=== PATIENT | male | born 1945 | race Caucasian/White ===

== ENCOUNTER 2019-10-19 10:08 | Inpatient (IN) | payer MEDICARE ==
[2020-01-14] MEDS ORDERED: Thrombin 5000 UNITS/5 ML VIAL ONE (06:11)
[2020-01-14] MEDS ORDERED: EPINEPHrine 1 MG/ML AMP ONE (06:11)
[2020-01-14] MEDS ORDERED: Bupivacaine PF 0.5% 30 ML VIAL ONE (06:11)
[2020-01-14] MEDS ORDERED: Fentanyl 100 MCG/2 ML VIAL ONE ×3 (06:52→16:39)
[2020-01-14] MEDS ORDERED: Phenylephrine 10 MG/ML VIAL ONE (06:52)
[2020-01-14] MEDS ORDERED: Rocuronium Bromide 50 MG/5 ML VIAL ONE (10:57)
[2020-01-14] MEDS ORDERED: Albumin 5% 500 ML ONE (12:04)
[2020-01-14] MEDS ORDERED: HYDROmorphone 2 MG/ML VIAL ONE (13:20)
[2020-01-14] MEDS ORDERED: Scopolamine 1.5 mg/72 hour Patch TD PRN (13:56)
[2020-01-14] MEDS ORDERED: Zolpidem Tartrate 5 MG TAB PO PRN (13:56)
[2020-01-14] MEDS ORDERED: Milk Of Magnesia 30 ML UDCUP PO PRN (13:56)
[2020-01-14] MEDS ORDERED: Ondansetron PF 4 MG/2 ML Vial IVP PRN (13:56)
[2020-01-14] MEDS ORDERED: Acetaminophen 325 MG TAB PO PRN (13:56)
[2020-01-14] MEDS ORDERED: Promethazine 25 MG TAB PO PRN (13:56)
[2020-01-14] MEDS ORDERED: tiZANidine HCl 4 MG TAB PO PRN (13:56)
[2020-01-14] MEDS ORDERED: diphenhydrAMINE 25 MG CAP PO PRN (13:56)
[2020-01-14] MEDS ORDERED: Dexamethasone 20 MG/5 ML VIAL ONE (13:59)
[2020-01-14] MEDS ORDERED: Glycopyrrolate 0.2 MG/ML 5 ML SYRINGE ONE (13:59)
[2020-01-14] MEDS ORDERED: Rocuronium Bromide 10 MG/ML (10ML VIAL) ONE (13:59)
[2020-01-14] MEDS ORDERED: PHENYLEPHRINE-NS 100 MCG/ML 10 ML SYRINGE ONE (13:59)
[2020-01-14] MEDS ORDERED: EPHEDRINE 25 MG/5 ML SYRINGE ONE (13:59)
[2020-01-14] MEDS ORDERED: Ondansetron PF 4 MG/2 ML Vial ONE (13:59)
[2020-01-14] MEDS ORDERED: PROPOFOL 200 MG/20 ML VIAL ONE (13:59)
[2020-01-14] MEDS ORDERED: Lidocaine 1% PF 5 ML VIAL ONE (13:59)
[2020-01-14] MEDS ORDERED: CEFAZOLIN 2 GM in Premix Bag 1 BAG IVPB SCH (14:00)
[2020-01-14] MEDS ORDERED: PACU-Morphine 4MG/ML VIAL SLOW IVP PRN (14:09)
[2020-01-14] MEDS ORDERED: Promethazine HCl 25 MG/ML VIAL IM PRN (14:09)
[2020-01-14] MEDS ORDERED: Promethazine HCl 25 MG/ML VIAL SLOW IVP PRN (14:09)
[2020-01-14] MEDS ORDERED: HYDROmorphone 2 MG/ML VIAL SLOW IVP PRN (14:09)
[2020-01-14] MEDS ORDERED: Ondansetron HCl/PF 4 MG/2 ML Vial IVP PRN (14:09)
[2020-01-14] MEDS ORDERED: Fentanyl 100 MCG/2 ML VIAL SLOW IVP PRN (14:13)
[2020-01-14] MEDS ORDERED: Calcium Chloride 1 GM/10 ML Abboject SYRINGE ONE (14:58)
--- NOTE | 2020-01-14 15:26 | OP ---
DATE OF PROCEDURE: 01/14/2020 CASHIER MANAGER: Miguel Carvajal PA-C PREOPERATIVE INDICATION: Treat pain, prevent neurological deterioration. PREOPERATIVE DIAGNOSES: Adjacent segment disease, prior lumbar fusion, lumbar stenosis, neurogenic claudication, lumbar radiculopathy, and advanced degenerative lumbar disk disease with foraminal stenosis at L4-5 and lateral recess stenosis at L3-4. POSTOPERATIVE DIAGNOSES: Adjacent segment disease, prior lumbar fusion, lumbar stenosis, neurogenic claudication, lumbar radiculopathy, and advanced degenerative lumbar disk disease with foraminal stenosis at L4-5 and lateral recess stenosis at L3-4. PROCEDURES PERFORMED: Reopening of lumbar incision, removal of posterior instrumentation at L5-S1, inspection of fusion, decompressive laminectomy with medial facetectomy and foraminotomy at L3-L4 and L4-5, transforaminal lumbar interbody arthrodesis at L4-5, posterior lateral arthrodesis at L4-5 and L5-S1, instrumentation from L4 through S1, local morselized autograft, morselized allograft. PREOPERATIVE MEDICATIONS: Ancef 2 g IV. DRAIN NUMBER: One. DRAIN TYPE: 10-[place] At. DESCRIPTION OF PROCEDURE: The patient was brought to the operating room. General endotracheal anesthesia was induced. The patient was positioned on the Albert frame with appropriate padding for the chest and hips. A lateral fluoro radiograph confirmed that his previous incision could give us access from L3 to the sacrum. The lumbar skin was sterilely prepped and draped. We opened with a 10 blade knife and controlled bleeding with bipolar and monopolar cautery. We used monopolar cautery to dissect through subcutaneous tissues to separate dorsal fascia. We incised the fascia in the midline. We peeled the paraspinal muscles off the remnant of the L4 spinous process and the superior portion of the sacrum. We dissected the scar tissue between these 2 landmarks and reflected the scar tissue laterally over the facet joints. We identified the L4-5 and L5-S1 facet joints. Pedicle screw and ko instrumentation at L5 and S1 was identified. We dissected around that. We dissected the paraspinal muscles off the spinous process and lamina of L3 as well. Self-retaining retractors were placed. A lateral fluoro radiograph confirmed our levels. We then brought the expansion of the field and removed the caps from the previous posterior instrumentation. We removed the crossbar as well and removed the rods from the L5 and S1 pedicle screws. We then used an Adson rongeur to remove the spinous process of L4 and L3 within the lamina with bone rongeurs and then using the Kerrison rongeur, we fashioned a laminectomy down the midline. We widened our laminectomy defect lateral to the thecal sac. There was overgrown facet joint material at L3-4 and L4-5. There was synovial cyst on the right at L3-4 and all this had to be removed to decompress the L4 nerve roots and the L5 nerve roots. Once our decompression of the canal was secured, we turned our attention to the right L4 nerve root, which was severely compressed in the foramen. Here complete facetectomy needed to be done to decompress the nerve. Once the nerve was well decompressed, we turned our attention to arthrodesis. We accessed the intervertebral space through the wide foraminotomy that we had created. We removed disk contents using curettes and rongeurs. We measured the height of the interspace to 10 mm with a rectangular bone rasp. We prepared the endplates for grafting. We irrigated with bacitracin irrigation. A 10 mm PEEK graft was brought into the field. This biomechanical device was loaded with the demineralized bone matrix and morselized autograft and advanced into the interspace under radiographic guidance to the appropriate depth. Our autograft was meticulously prepared on the back table from our laminectomy bone. The bone was cleaned of all soft tissue morselized and added to demineralized bone matrix as our fusion substrate. With the interbody graft in place, we turned our attention to pedicle screw instrumentation. Using bony anatomic landmarks, palpation of the medial portion of pedicles, and a lateral fluoro radiograph as our guide, we placed pedicle screws at L4. We drilled out our entry point and then used a bone awl to advance through the pedicles into the vertebral bodies. We tapped the trajectories with threaded tap, and found them completely encased in bone. We placed 6.5 x 50 mm screws into the pedicles of L4. A 360-degree image set was generated with our eccentric C-arm confirming adequate positioning of our instrumentation. We also get images of the L5 and S1 pedicles and in case they need to be removed toward the end of the case and replaced with our own instrumentation. Thankfully, our 5.5 mm rods fit the caps that are in the patient already. We contoured rods with a [place] Coronel and engage with each of the caps from S1 all the way to L4. We tightened new caps down over our pedicle screws and replaced the old caps on a previous instrumentation system. Using a torque-counter torque mechanism, we ensured adequate tightness. Gentle compression was placed across the L4-5 interspace to keep antibiotic graft in place before final tightening. We irrigated with bacitracin irrigation. We decorticated the transverse processes of L4 bilaterally as well as the entire fusion mass at L5 and S1 in the posterior lateral space. Over the decorticated bone, we left demineralized bone matrix and morselized autograft for posterior lateral fusion substrate. We tunneled the drain inferiorly through a separate stab incision. We treated the wound with vancomycin powder. We closed the wound in anatomic layers. We applied a sterile dressing. This was a clean case, no contamination. Job ID: [id number]
[2020-01-14] MEDS: Fentanyl 100 MCG/2 ML VIAL SLOW IVP PRN ×2 (18:26→23:02)
[2020-01-14 18:57] VITALS: BMI 27.3
[2020-01-14] MEDS ORDERED: Lorazepam 0.5 MG TAB PO SCH (21:00)
[2020-01-14] MEDS: Lorazepam 1 MG TAB PO SCH (21:12)
[2020-01-14] MEDS: Sodium Chloride 0.9% 1,000 ML IV SCH (21:27)
[2020-01-15] MEDS: Sodium Chloride 0.9% 1,000 ML IV SCH ×2 (01:56→08:51)
[2020-01-15] MEDS: CEFAZOLIN 2 GM in Premix Bag 1 BAG IVPB SCH ×3 (02:17→17:53)
[2020-01-15] MEDS: Acetaminophen/Codeine 30-300mg Tablet PO PRN ×3 (02:18→22:38)
[2020-01-15] MEDS: traMADol HCl 50 MG TAB PO PRN ×4 (02:19→22:39)
[2020-01-15] MEDS: Levothyroxine Sodium 125 MCG TAB PO SCH (05:31)
[2020-01-15] MEDS: Tamsulosin HCl 0.4 MG CAP PO SCH (05:32)
[2020-01-15 08:33] LABS: #Monocytes 1.2 thou/uL (0.11-0.59); %Basophils 0.3 % (0.0-1.0); %Eosinophils 0.1 % (0.0-10.0); %Lymphocytes 17.9 % (21.0-51.0); %Neutrophils 70.7 % (42.0-75.0); Hemoglobin 11.5 g/dL (14.0-18.0); Mean Corpuscular HGB CONC 31.9 g/dL (32.0-36.0); Mean Corpuscular Hemoglobin 29.8 pg (27.0-31.0); Mean Corpuscular Volume 93.3 fL (78.0-98.0); Mean Platelet Volume 8.2 fL (7.4-10.4); Platelet Count 134 thou/uL (130-400); RBC Distribution Width 12.3 % (11.5-14.5); Red Blood Cell (RBC) Count 3.86 mill/uL (4.70-6.10); White Blood Cell (WBC) Count 11.3 thou/uL (4.8-10.8)
[2020-01-15 08:46] LABS: Anion Gap 9 mmol/L (10-20); BUN (Urea Nitrogen) 26 mg/dL (8.4-25.7); Calc. Creatinine Clearance 54 mL/min (70-130); Calcium 7.8 mg/dL (7.8-10.44); Carbon Dioxide 24 mmol/L (23-31); Chloride 110 mmol/L (98-107); Estimated GFR-MDRD 51; Glucose 92 mg/dL (83-110); Potassium 4.3 mmol/L (3.5-5.1); Sodium 139 mmol/L (136-145)
[2020-01-15] MEDS: Citalopram 20 MG TAB PO SCH (08:51)
[2020-01-15] MEDS: Dutasteride 0.5 MG CAP PO SCH (08:51)
[2020-01-15] MEDS: Lorazepam 1 MG TAB PO SCH (22:40)
[2020-01-16] MEDS: CEFAZOLIN 2 GM in Premix Bag 1 BAG IVPB SCH ×3 (01:01→17:17)
[2020-01-16] MEDS: Sodium Chloride 0.9% 1,000 ML IV SCH ×2 (02:54→11:25)
[2020-01-16] MEDS: Tamsulosin HCl 0.4 MG CAP PO SCH (05:39)
[2020-01-16] MEDS: Levothyroxine Sodium 125 MCG TAB PO SCH (05:39)
[2020-01-16] MEDS: Acetaminophen/Codeine 30-300mg Tablet PO PRN ×2 (09:37→22:53)
[2020-01-16] MEDS: traMADol HCl 50 MG TAB PO PRN ×2 (09:38→22:52)
[2020-01-16] MEDS: Citalopram 20 MG TAB PO SCH (09:39)
[2020-01-16] MEDS: Lorazepam 1 MG TAB PO SCH (21:10)
[2020-01-17] MEDS: CEFAZOLIN 2 GM in Premix Bag 1 BAG IVPB SCH ×2 (02:49→08:50)
[2020-01-17] MEDS: Sodium Chloride 0.9% 1,000 ML IV SCH ×2 (04:51→08:46)
[2020-01-17] MEDS: Levothyroxine Sodium 125 MCG TAB PO SCH (04:54)
[2020-01-17] MEDS: Tamsulosin HCl 0.4 MG CAP PO SCH (04:54)
[2020-01-17] MEDS: Dutasteride 0.5 MG CAP PO SCH (08:50)
[2020-01-17] MEDS: Citalopram 20 MG TAB PO SCH (08:51)
--- NOTE | 2020-01-17 13:59 | PRG ---
DATE OF SERVICE: 01/16/2020 Mr. Zhou is on the second day postop from lumbar fusion and he is doing extraordinarily well and walked 500 feet in the [place] yesterday with only support being the IV pole with no other assistance. His drain, however, has continued to put out a fair amount, 125 overnight and 100 over the other 8-hour periods before then and after. Even upon my seeing him this morning, which is around 9:30 a.m., the drain was emptied at 7 o'clock and he already has close to 40 in there. We will continue to monitor this throughout the day. As soon as this tapers some, we can go ahead and pull. I discussed possibility of discharge as early as this afternoon, potentially tomorrow morning. The patient understands and is in agreement. He does have a little more pain today, but before that has required little to no pain medication and has tolerated this procedure quite well. He wants to take a shower today, which I am agreeable to as long as we put a Tegaderm over the entry site of the drain and then remove after showering. We will check back in later. Job ID: [id number]
[2020-01-17] MEDS: Acetaminophen/Codeine 30-300mg Tablet PO PRN (14:49)
[2020-01-17] MEDS: traMADol HCl 50 MG TAB PO PRN (14:55)
[2020-01-17 15:15] VITALS: BP 119/71; TEMP 98.6
--- NOTE | 2020-01-18 06:40 | DIS ---
DATE OF ADMISSION: 01/14/2020 DATE OF DISCHARGE: 01/17/2020 SUBJECTIVE: Mr. Zhou is on the 3rd day of his postoperative stay following lumbar extension fusion by Dr. Ibrahim. He has been mobilizing, ambulating very well, transitions in and out of bed, up and down independently and has minimal pain with doing so. He is using tramadol and Tylenol No. 3 to ameliorate these pains and has taken that at a minimum. I feel at this point, he is ready to go home. He is in agreement, though expresses a mild trepidation about the drain, which overnight only put out 25 mL. Will go ahead and discontinue and then likely move towards discharge this afternoon. ADMISSION DIAGNOSIS: Status post lumbar extension fusion. DISCHARGE DIAGNOSIS: Status post lumbar extension fusion. HOSPITAL COURSE: Mr. Zhou's hospital course was uncomplicated other than high output DEMETRIA drain for the first 48 hours. This tapered off quite nicely and the patient was discharged home with outpatient followup in 1 to 2 weeks. Job ID: [id number]
== END 2020-01-17 17:20 | disposition home or self-care (01) | DRG 455 ==
LOC: SURG A 01-14 05:33 → SURG B 01-14 17:14
PROVIDERS: ADMIT Neurological Surgery; ATTEND Neurological Surgery
PROC: 0SG10AJ Fusion of 2 or more Lumbar Vertebral Joints with Interbody Fusion Device, Posterior Approach, Anterior Column, Open Approach (ICD-10-PCS; principal; 2020-01-14)
PROC: 0SG1071 Fusion of 2 or more Lumbar Vertebral Joints with Autologous Tissue Substitute, Posterior Approach, Posterior Column, Open Approach (ICD-10-PCS; 2020-01-14)
PROC: 0SB20ZZ Excision of Lumbar Vertebral Disc, Open Approach (ICD-10-PCS; 2020-01-14)
PROC: 01NB0ZZ Release Lumbar Nerve, Open Approach (ICD-10-PCS; 2020-01-14)
PROC: 0SP30JZ Removal of Synthetic Substitute from Lumbosacral Joint, Open Approach (ICD-10-PCS; 2020-01-14)
DX: M48.062 Spinal stenosis, lumbar region with neurogenic claudication (principal); M43.06 Spondylolysis, lumbar region; M54.16 Radiculopathy, lumbar region; E78.5 Hyperlipidemia, unspecified; E03.9 Hypothyroidism, unspecified; F41.9 Anxiety disorder, unspecified; N40.0 Benign prostatic hyperplasia without lower urinary tract symptoms; F32.9 Major depressive disorder, single episode, unspecified; Z79.890 Hormone replacement therapy; Z79.899 Other long term (current) drug therapy; Z88.5 Allergy status to narcotic agent
CPT/HCPCS: 36415; 76000; 80048; 85025; C1713; C1768; J0171; J0690; J1100; J1170; J1642; J2001; J2370; J2405; J2704; J3010; J3370; P9045; S0020

== ENCOUNTER 2020-01-10 07:21 | Outpatient (CLI) | payer MEDICARE, OTHER ==
[2020-01-10 13:55] LABS: Hemoglobin 15.3 g/dL (14.0-18.0); Mean Corpuscular HGB CONC 32.7 g/dL (32.0-36.0); Mean Corpuscular Hemoglobin 30.3 pg (27.0-31.0); Mean Corpuscular Volume 92.6 fL (78.0-98.0); Mean Platelet Volume 8.6 fL (7.4-10.4); Platelet Count 154 thou/uL (130-400); RBC Distribution Width 12.3 % (11.5-14.5); Red Blood Cell (RBC) Count 5.06 mill/uL (4.70-6.10); White Blood Cell (WBC) Count 5.5 thou/uL (4.8-10.8)
[2020-01-10 14:00] LABS: INR-International Normal Ratio 1.1; PTT 28.1 SEC (22.9-36.1); Prothrombin Time 13.9 sec (12.0-14.7)
[2020-01-10 17:40] LABS: SARS-CoV-2 MS2 Positive; SARS-CoV-2 N Gene Negative; SARS-CoV-2 S Gene Negative; SARS-CoV-2 orf1ab Negative
== END 2020-01-10 07:22 | disposition home or self-care (01) ==
LOC: EDSTATUS 07:21 → LABBT 07:21
PROVIDERS: ATTEND Neurological Surgery
DX: Z01.812 Encounter for preprocedural laboratory examination (principal); Z11.59 Encounter for screening for other viral diseases; M48.061 Spinal stenosis, lumbar region without neurogenic claudication
CPT/HCPCS: 85027; 85610; 85730; U0003; 87635